=== PATIENT | female | born 1985 | race African-American/Black ===

== ENCOUNTER 2016-12-27 16:58 | Emergency (ER) | payer MEDICAID, OTHER ==
[~2016-12-27] VITALS: Ht 177.8 cm; Wt 72.6 kg
[2016-12-27] MEDS ORDERED: Acetaminophen 500mg (ES) tab ORAL ONE (18:15)
[2016-12-27] MEDS ORDERED: Dexamethasone 4mg/ml vial IM ONE (18:15)
--- NOTE | 2016-12-27 18:17 | Emergency Room Report ---
History of Present Illness General Chief Complaint: Skin Rash/Abscess Source: Patient Present Illness HPI 31-year-old female presents emergency department complaining of pain, swelling and tenderness to a localized area in the vaginal area x3 days. Patient reports history several years ago of similar symptoms which responded well to injected steroids and anti-inflammatory medications. Patient denies history of requiring incision and drainage. 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 Patient denies fevers chills vaginal discharge lesions of the skin or history of STI. Patient reports mild erythema denies increase in temperature palpation. She denies . Denies dysuria, hematuria, or frequency, denies abdominal pain. Denies CP, Palpitations, LOC, AMS, dizziness, Changes in Vision, Sensation, paresthesias, or a sudden severe headache. Allergies: Coded Allergies: No Known Allergies (Unverified , 12/27/16) Patient History Past Medical History: see triage record Past Surgical History: none Pertinent Family History: none Last Menstrual Period: 12/19/16 Now: No Immunizations: UTD Reviewed Nursing Documentation: PMH: Agreed, PSxH: Agreed Nursing Documentation-PMH Past Medical History: No History, Except For Review of Systems All Other Systems: negative except mentioned in HPI Physical Exam Vital Signs Date Time Temp Pulse Resp B/P Pulse Ox O2 Delivery O2 Flow Rate FiO2 12/27/16 17:13 98.1 99 16 149/94 100 Sp02 EP Interpretation: reviewed, normal General Appearance: no apparent distress, alert, GCS 15, non-toxic Head: normocephalic, atraumatic Eyes: bilateral eye PERRL, bilateral eye normal inspection ENT: hearing grossly normal, normal pharynx, no angioedema, normal voice Neck: full range of motion, supple/symm/no masses Respiratory: lungs clear, normal breath sounds, speaking full sentences Cardiovascular #1: regular rate, rhythm, no edema Gastrointestinal: normal bowel sounds, non tender, soft, no guarding, no rebound Rectal: deferred Genitourinary: normal inspection, no CVA tenderness, adnexa normal, os closed, urethra normal, other - moderate swelling, erythema and TTP to the soft tissue in the clitoral region, no fluctuance palpated, no lesions noted, no inguinal LAD. Musculoskeletal: back normal, gait/station normal, normal range of motion, non- tender, no calf tenderness Neurologic: alert, oriented x3, responsive, motor strength/tone normal, sensory intact, speech normal Psychiatric: judgement/insight normal, memory normal, mood/affect normal, no suicidal/homicidal ideation Reflexes: 4+ bicep (R), 4+ bicep (L), 4+ tricep (R), 4+ tricep (L), 4+ knee (R) , 4+ knee (L) Skin: normal color, no rash, warm/dry, well hydrated Lymphatic: no adenopathy Medical Decision Making PA Attestation Dr. Vincent is my supervising Physician whom patient management has been discussed with. Diagnostic Impression: Primary Impression: Inflammation of clitoris Additional Impression: Localized soft tissue swelling ER Course 31-year-old female presents emergency department complaining of pain, swelling and tenderness to a localized area in the vaginal area x3 days. Patient reports history several years ago of similar symptoms which responded well to injected steroids and anti-inflammatory medications. Patient denies history of requiring incision and drainage. 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 Patient denies fevers chills vaginal discharge lesions of the skin or history of STI. Patient reports mild erythema denies increase in temperature palpation. She denies . -Pt currently taking Doxycyxline as she was traveling recently and still has 2 weeks more to take. pt also has appt. with OBGYN next saturday. Ddx considered but are not limited to cellulitis, abscess, cystic acne, necrotizing fasciitis, insect bite, STI, Bartholin gland cyst. Vital signs: are WNL, pt. is afebrile H&PE are most consistent with irritation and swelling of the soft tissue around the clitoris. no fluctuance is palpated, no lesions noted. ORDERS: none required at this time, the diagnosis is clinical ED INTERVENTIONS: - Decadron 8mg IM d/w pt. to continue taking her PO abx, and to take NSAIDS consistently. D/w pt. to follow up with her OBGYN. DISCHARGE: At this time pt. is stable for d/c to home. Will provide printed patient care instructions, and any necessary prescriptions. Care plan and follow up instructions have been discussed with the patient prior to discharge. Last Vital Signs Date Time Temp Pulse Resp B/P Pulse Ox O2 Delivery O2 Flow Rate FiO2 12/27/16 17:13 98.1 99 16 149/94 100 Disposition: HOME, SELF-CARE Condition: Stable Scripts Lidocaine (ANECREAM) 5 Gm Cream..g. 1 APPLIC TP TID, #5 GM Prov: Serenity Garland 12/27/16 Ibuprofen* (MOTRIN*) 600 Mg Tablet 600 MG ORAL THREE TIMES A DAY, #30 TAB 0 Refills Prov: Serenity Garland 12/27/16 Referrals: NON PHYSICIAN (PCP) Patient Instructions: Medical Screening Exam Additional Instructions: Take medications as directed. continue to finish course of Doxycycline Follow up with OBGYN in 3-5 days Return sooner to ED if new symptoms occur, or current symptoms become worse. - Please note that this Emergency Department Report was dictated using [employer] sh[employer] set up operator technology software, occasionally this can lead to erroneous entry secondary to interpretation by the dictation equipment. Serenity Garland Dec 27, 2016 18:17
[2016-12-27] MEDS ORDERED: IBUPROFEN600 MG ORAL (18:20)
[2016-12-27] MEDS ORDERED: ANECREAM5 GM TP (18:20)
[2016-12-27 18:32] VITALS: BP 147/98
== END 2016-12-27 18:32 | disposition home or self-care (01) ==
LOC: EMR 17:35
DX: N76.0 Acute vaginitis (principal); R22.9 Localized swelling, mass and lump, unspecified
CPT/HCPCS: 96372; 99283; J1100